=== PATIENT | female | born 1990 | race Caucasian/White ===

== ENCOUNTER 2020-02-21 10:23 | Inpatient (IN) ==
[2020-02-21] MEDS ORDERED: BUTORPHANOL 2 MG/ML VIAL IV PRN (10:52)
[2020-02-21] MEDS ORDERED: MEPERIDINE 50 MG/1 ML VIAL IV PRN (10:52)
[2020-02-21] MEDS ORDERED: OXYTOCIN/LR 20 UNIT/1,000 ML BAG IV SCH (11:00)
[2020-02-21 11:19] LABS: Basophils % 0.3 % (0.0-0.8); Eosinophils # 0.1 10*3/uL (0.0-0.87); Eosinophils % 1.1 % (0.00-10.9); Hematocrit 29.2 VOL% (35.7-47.0); Hemoglobin 9.2 GM/DL (12.0-16.0); Immature Granulocytes Absolute 0.15 #; Lymphocytes % 12.8 % (21.3-54.2); Mean Corpuscular HGB Conc 31.5 GM/DL (32-36); Mean Corpuscular Volume 74.9 FL (87-102); Mean Platelet Volume 9.8 FL (9.6-12.0); Neutrophils % 76.8 % (38.7-73.9); Platelet Count 203 T/CUMM (130-400); Red Cell Distribution Width 15.2 % (9.3-17.3); White Blood Count 7.6 T/CUMM (4-12)
[2020-02-21] MEDS ORDERED: PROMETHAZINE 25 MG/1 ML VIAL IM PRN (11:23)
[2020-02-21] MEDS ORDERED: FAMOTIDINE 20 MG/2 ML VIAL IV ONE (11:23)
[2020-02-21] MEDS ORDERED: NALOXONE 0.4 MG/ML VIAL IV PRN (11:23)
[2020-02-21] MEDS ORDERED: diphenhydrAMINE 50 MG/1 ML VIAL IV PRN ×2 (11:23)
[2020-02-21] MEDS ORDERED: CITRIC ACID/SODIUM CITRATE 30 ML UDCUP PO ONE (11:23)
[2020-02-21] MEDS ORDERED: hydrOXYzine HCL 25 MG/1 ML VIAL IM PRN (11:23)
[2020-02-21] MEDS ORDERED: ePHEDrine 50 MG/ML VIAL IV PRN ×2 (11:23)
[2020-02-21 11:33] LABS: INR 0.9; PT Patient Result 10.1 SECS (9.8-11.9); Partial Thromboplastin Time 27.3 SECS (23.9-33.8)
[2020-02-21 11:42] LABS: Alanine Aminotransferase 17 U/L (13-56); Albumin 2.5 G/DL (3.4-5.0); Alkaline Phosphatase 162 U/L (45-117); Aspartate Amino Transferase 20 U/L (0-37); Bilirubin,Direct < 0.100 MG/DL (0.0-0.20); Bilirubin,Total < 0.39 MG/DL (0.2-1.0); Blood Urea Nitrogen 6 MG/DL (7-18); Calcium 8.8 MG/DL (8.5-10.1); Estimated Glom Filtration Rate 139 ML/MIN; Glucose 85 MG/DL (74-106); Osmolality,Calculated 273.5 MOS/KG (273-304); Total Protein 6.7 G/DL (6.4-8.3); Uric Acid 4.6 MG/DL (2.6-6.0)
[2020-02-21] MEDS: LACTATED RINGERS 1,000 ML IV SCH ×3 (12:40→18:34)
[2020-02-21] MEDS: fentaNYL 2 MCG/ROPIV 0.2% EPID 100 ML EPIDURAL SCH ×2 (13:05→20:01)
[2020-02-21] MEDS: ONDANSETRON 4 MG/2 ML VIAL IV PRN ×2 (13:39→21:59)
[2020-02-21 14:25] LABS: Bacteria,Urine Occasional /HPF (Few); Bilirubin,Urine Negative (Negative); Blood, Urine Negative (Negative); Glucose,Urine (UA) Negative (Negative); Ketones,Urine 20 mg/dL (Negative); Mucus,Urine Occasional /LPF (Occasional); Nitrite,Urine Negative (Negative); Protein,Urine 30 MG/DL; RBC,Urine 1 /HPF (0-4); Squamous Epithelial Cell,Urine Occasional /HPF (0-10); Urine Appearance CLEAR (Clear); Urine Color Yellow (Yellow); Urine Specific Gravity 1.014 (1.001-1.035); Urine Urobilinogen < 2.0 EU/DL (0.2-1.0); WBC,Urine 1 /HPF (0-6)
[2020-02-21] MEDS ORDERED: AMPICILLIN INJ 2,000 MG in SODIUM CHLORIDE 0.9% 100 ML IV ONE (19:50)
[2020-02-21] MEDS ORDERED: ACETAMINOPHEN 500 MG TABLET PO ONE (21:52)
[2020-02-21] MEDS ORDERED: ceFAZolin 2,000 MG in PREMIX 1 EACH IV ONE (22:25)
[2020-02-21] MEDS ORDERED: OXYTOCIN/LR 30 UNIT/1,000 ML BAG IV ONE (22:28)
[2020-02-22] MEDS ORDERED: miSOPROStoL 200 MCG TABLET ONE (00:55)
[2020-02-22] MEDS ORDERED: CARBOPROST TROMETHAMINE 250 MCG/ML AMP IM ONE (00:56)
[2020-02-22] MEDS ORDERED: TRANEXAMIC ACID 1,000 MG/10 ML VIAL ONE (00:56)
[2020-02-22] MEDS ORDERED: METHYLERGONOVINE 0.2 MG/1 ML AMP ONE (00:56)
[2020-02-22] MEDS ORDERED: OXYTOCIN 10 UNIT/ML VIAL ONE (00:57)
[2020-02-22] MEDS ORDERED: ONDANSETRON 4 MG/2 ML VIAL ONE (01:25)
[2020-02-22] MEDS ORDERED: LIDOCAINE MPF 2% /EPI 20 ML VIAL ONE (01:25)
[2020-02-22] MEDS ORDERED: DEXAMETHASONE 4 MG/1 ML VIAL ONE (01:31)
[2020-02-22] MEDS ORDERED: MORPHINE 10 MG/10 ML VIAL ONE (01:50)
[2020-02-22] MEDS ORDERED: fentaNYL 100 MCG/2 ML VIAL ONE ×2 (01:58→02:21)
[2020-02-22] MEDS ORDERED: TISSUE ADHESIVE 1 EACH APPLICATOR TOP ONE (02:04)
[2020-02-22 02:07] LABS: Cord Venous Blood HCO3 21.3 MMOL/L; Cord Venous Blood PCO2 37.5 MMHG; Cord Venous Blood PO2 34.2 MMHG
[2020-02-22] MEDS ORDERED: PHENYLEPHRINE 1 MG/10 ML SYRINGE IV ONE (02:08)
[2020-02-22] MEDS ORDERED: MAGNESIUM HYDROXIDE SUSP 30 ML UDCUP PO PRN (02:17)
[2020-02-22] MEDS ORDERED: ONDANSETRON 4 MG/2 ML VIAL IV PRN (02:17)
[2020-02-22] MEDS ORDERED: SIMETHICONE CHEW 80 MG TABLET PO PRN (02:17)
[2020-02-22] MEDS ORDERED: ACETAMINOPHEN 325 MG TABLET PO PRN (02:17)
[2020-02-22] MEDS ORDERED: RHO(D) IMMUNE GLOBULIN 300 MCG SYRINGE IM ONE (02:17)
[2020-02-22] MEDS ORDERED: OXYTOCIN/LR 20 UNIT/1,000 ML BAG IV ONE (02:17)
[2020-02-22 02:22] LABS: Cord Arterial Blood HCO3 20.3 MMOL/L
[2020-02-22] MEDS ORDERED: HYDROmorphone 2 MG/1 ML VIAL ONE (02:23)
[2020-02-22] MEDS ORDERED: METHYLERGONOVINE 0.2 MG/1 ML AMP IM ONE (02:25)
[2020-02-22] MEDS ORDERED: LACTATED RINGERS 1,000 ML IV SCH (02:30)
[2020-02-22] MEDS ORDERED: KETOROLAC 30 MG/1 ML VIAL ONE (02:32)
[2020-02-22] MEDS ORDERED: SODIUM BICARBONATE 10 MEQ/10 ML SYRINGE IV ONE (02:43)
[2020-02-22 04:52] LABS: Basophils % 0.2 % (0.0-0.8); Hemoglobin 7.7 GM/DL (12.0-16.0); Immature Granulocytes % 0.8 %; Immature Granulocytes Absolute 0.16 #; Lymphocytes # 0.4 10*3/uL (1.4-4.0); Mean Corpuscular HGB Conc 32.1 GM/DL (32-36); Mean Corpuscular Volume 74.5 FL (87-102); Mean Platelet Volume 9.9 FL (9.6-12.0); Monocytes % 5.3 % (1.7-12.7); Neutrophils % 91.7 % (38.7-73.9); Platelet Count 204 T/CUMM (130-400); Red Blood Count 3.22 MC/CUMM (3.8-5.5); Red Cell Distribution Width 15.5 % (9.3-17.3); White Blood Count 19.3 T/CUMM (4-12)
[2020-02-22 05:20] LABS: Band Neutrophils 3 % (0-10); Hypochromasia 2+; Lymphocytes 2 % (20-55); Microcytosis 1+; Platelet Estimate Adequate; Segmented Neutrophils 93 % (50-85); Total Cells Counted 100
[2020-02-22] MEDS ORDERED: SODIUM CHLORIDE 0.9% 1,000 ML IV PRN ×2 (06:29→10:36)
[2020-02-22] MEDS: METOCLOPRAMIDE 10 MG/2 ML VIAL IV SCH ×2 (07:50→17:13)
[2020-02-22] MEDS: ceFAZolin 1,000 MG in SYRINGE 1 EACH IV SCH ×2 (09:10→21:23)
[2020-02-22] MEDS: HYDROmorphone 2 MG/1 ML VIAL IV PRN ×2 (09:23→13:57)
[2020-02-22] MEDS: DOCUSATE SODIUM 100 MG CAPSULE PO SCH ×2 (12:08→21:22)
[2020-02-22] MEDS: MULTIVITAMIN (PRENATAL) TABLET PO SCH (12:09)
[2020-02-22] MEDS: IBUPROFEN 800 MG TABLET PO PRN (18:38)
[2020-02-22] MEDS: FERROUS SULFATE 325 MG TABLET PO SCH (21:22)
[2020-02-22] MEDS: METOCLOPRAMIDE 10 MG TABLET PO SCH (21:22)
[2020-02-23] MEDS: METOCLOPRAMIDE 10 MG TABLET PO SCH ×2 (04:46→15:06)
[2020-02-23] MEDS: ceFAZolin 1,000 MG in SYRINGE 1 EACH IV SCH ×2 (04:47→14:00)
[2020-02-23 05:41] LABS: Basophils % 0.2 % (0.0-0.8); Eosinophils % 0.1 % (0.00-10.9); Hematocrit 25.2 VOL% (35.7-47.0); Hemoglobin 8.5 GM/DL (12.0-16.0); Immature Granulocytes % 0.9 %; Immature Granulocytes Absolute 0.17 #; Lymphocytes # 1.4 10*3/uL (1.4-4.0); Mean Corpuscular HGB Conc 33.7 GM/DL (32-36); Mean Corpuscular Volume 76.1 FL (87-102); Mean Platelet Volume 9.9 FL (9.6-12.0); Neutrophils % 84.8 % (38.7-73.9); Platelet Count 187 T/CUMM (130-400); Red Blood Count 3.31 MC/CUMM (3.8-5.5); Red Cell Distribution Width 15.9 % (9.3-17.3)
[2020-02-23] MEDS: IBUPROFEN 800 MG TABLET PO PRN (06:06)
[2020-02-23 07:42] VITALS: BP 131/73
[2020-02-23] MEDS: DOCUSATE SODIUM 100 MG CAPSULE PO SCH (09:14)
[2020-02-23] MEDS: FERROUS SULFATE 325 MG TABLET PO SCH (09:14)
[2020-02-23] MEDS: MULTIVITAMIN (PRENATAL) TABLET PO SCH (09:14)
[2020-02-23] MEDS ORDERED: RHO(D) IMMUNE GLOBULIN 300 MCG SYRINGE IM ONE (13:00)
[2020-02-23] MEDS ORDERED: MEASLES/MUMPS/RUBELLA VACCINE 0.5 ML VIAL SUBCUT ONE (13:52)
== END 2020-02-23 14:55 | disposition home or self-care (01) | DRG 786 ==
LOC: N.LDOUT 10:23 → N.LD 10:28 → N.OB 02-22 08:07
PROVIDERS: ADMIT Obstetrics & Gynecology; ATTEND Obstetrics & Gynecology
PROC: LDCSECT (ICD-10-PCS; 2020-02-22 01:20)

== ENCOUNTER 2021-08-17 14:40 | Observation (INO) ==
[2021-08-17 16:36] LABS: Basophils % 0.9 % (0.0-0.8); Eosinophils # 0.2 10*3/uL (0.0-0.87); Eosinophils % 4.6 % (0.00-10.9); Hematocrit 37.5 VOL% (35.7-47.0); Hemoglobin 12.7 GM/DL (12.0-16.0); Immature Granulocytes % 0.2 %; Immature Granulocytes Absolute 0.01 #; Lymphocytes # 1.3 10*3/uL (1.4-4.0); Lymphocytes % 28.8 % (21.3-54.2); Mean Corpuscular HGB Conc 33.9 GM/DL (32-36); Mean Corpuscular Volume 80.6 FL (87-102); Mean Platelet Volume 9.3 FL (9.6-12.0); Monocytes # 0.4 10*3/uL (0.11-0.8); Monocytes % 9.2 % (1.7-12.7); Neutrophils % 56.3 % (38.7-73.9); Platelet Count 234 T/CUMM (130-400); Red Blood Count 4.65 MC/CUMM (3.8-5.5); White Blood Count 4.4 T/CUMM (4-12)
[2021-08-17 16:46] LABS: Bilirubin,Urine Negative (Negative); Blood, Urine Small mg/dL (Negative); Glucose,Urine (UA) Negative (Negative); Ketones,Urine Negative (Negative); Nitrite,Urine Negative (Negative); Protein,Urine Negative (Negative); Urine Appearance Clear (Clear); Urine Color Yellow (Yellow); Urine Urobilinogen 0.2 eU/dL (<2.0)
[2021-08-17 16:48] LABS: Bacteria,Urine Occasional /HPF (Few); Squamous Epithelial Cell,Urine Occasional /HPF (0-10)
[2021-08-17 16:55] LABS: Alanine Aminotransferase 23 U/L (13-56); Albumin 4.2 G/DL (3.4-5.0); Alkaline Phosphatase 71 U/L (45-117); Aspartate Amino Transferase 12 U/L (0-37); Bilirubin,Total < 0.39 MG/DL (0.20-1.00); Blood Urea Nitrogen 11 MG/DL (7-18); Calcium 9.2 MG/DL (8.5-10.1); Carbon Dioxide 28 MMOL/L (21-32); Chloride 110 MMOL/L (98-107); Glucose 97 MG/DL (74-106); Potassium 3.1 MMOL/L (3.5-5.1); Sodium 143 MMOL/L (136-145); Total Protein 7.2 G/DL (6.4-8.2)
[2021-08-17 17:17] LABS: PT Patient Result 10.8 SECS (10.5-12.0)
[2021-08-17] MEDS ORDERED: DOCUSATE SODIUM 100 MG CAPSULE PO PRN (17:52)
[2021-08-17] MEDS ORDERED: GLUCAGON 1 MG VIAL IM PRN (17:52)
[2021-08-17] MEDS ORDERED: ONDANSETRON 4 MG/2 ML VIAL IV PRN (17:52)
[2021-08-17] MEDS ORDERED: DEXTROSE 10% 250 ML BAG IV PRN (17:57)
[2021-08-17] MEDS ORDERED: POTASSIUM CHLORIDE 20 MEQ TABLET PO ONE (18:04)
[2021-08-17] MEDS: POTASSIUM CHLORIDE INJ 40 MEQ in LACTATED RINGERS 1,000 ML IV SCH (18:34)
[2021-08-17 18:36] LABS: Thyroid Stimulating Hormone 0.929 uIU/ml (0.358-3.74)
[2021-08-17] MEDS: PANTOPRAZOLE 40 MG TABLET PO SCH (20:37)
[2021-08-18 05:20] LABS: Basophils # 0.1 10*3/uL (0.0-0.2); Basophils % 1.2 % (0.0-0.8); Eosinophils # 0.3 10*3/uL (0.0-0.87); Eosinophils % 7.1 % (0.00-10.9); Hematocrit 34.1 VOL% (35.7-47.0); Hemoglobin 11.3 GM/DL (12.0-16.0); Immature Granulocytes % 0.2 %; Immature Granulocytes Absolute 0.01 #; Lymphocytes % 48.5 % (21.3-54.2); Mean Corpuscular HGB Conc 33.1 GM/DL (32-36); Mean Corpuscular Volume 82.6 FL (87-102); Mean Platelet Volume 9.5 FL (9.6-12.0); Monocytes # 0.4 10*3/uL (0.11-0.8); Monocytes % 9.3 % (1.7-12.7); Neutrophils % 33.7 % (38.7-73.9); Platelet Count 214 T/CUMM (130-400); Red Blood Count 4.13 MC/CUMM (3.8-5.5); Red Cell Distribution Width 18.4 % (9.3-17.3); White Blood Count 4.1 T/CUMM (4-12)
[2021-08-18 05:44] LABS: Calcium 8.6 MG/DL (8.5-10.1); Eosinophils 13 % (0-10); Lymphocytes 51 % (20-55); Platelet Estimate Normal; Total Cells Counted 100
[2021-08-18] MEDS ORDERED: POTASSIUM CHLORIDE 20 MEQ TABLET PO SCH (09:00)
[2021-08-18] MEDS: PANTOPRAZOLE 40 MG TABLET PO SCH ×2 (09:18→20:30)
[2021-08-18 10:08] LABS: Calcium 8.9 MG/DL (8.5-10.1); Osmolality,Calculated 283.8 MOS/KG (273-304); Potassium 4.3 MMOL/L (3.5-5.1)
[2021-08-18] MEDS: LACTATED RINGERS 1,000 ML IV SCH ×2 (11:00→16:59)
[2021-08-18] MEDS ORDERED: ACETAMINOPHEN 325 MG TABLET PO PRN (22:58)
[2021-08-19] MEDS: POTASSIUM CHLORIDE INJ 40 MEQ in LACTATED RINGERS 1,000 ML IV SCH (03:07)
[2021-08-19 05:18] LABS: Basophils % 0.8 % (0.0-0.8); Eosinophils # 0.3 10*3/uL (0.0-0.87); Hematocrit 34.9 VOL% (35.7-47.0); Hemoglobin 11.6 GM/DL (12.0-16.0); Immature Granulocytes % 0.2 %; Immature Granulocytes Absolute 0.01 #; Lymphocytes # 2.2 10*3/uL (1.4-4.0); Lymphocytes % 46.1 % (21.3-54.2); Mean Corpuscular HGB Conc 33.2 GM/DL (32-36); Mean Corpuscular Volume 83.1 FL (87-102); Mean Platelet Volume 9.8 FL (9.6-12.0); Monocytes # 0.4 10*3/uL (0.11-0.8); Monocytes % 8.3 % (1.7-12.7); Neutrophils % 37.6 % (38.7-73.9); Platelet Count 208 T/CUMM (130-400); White Blood Count 4.7 T/CUMM (4-12)
[2021-08-19 05:32] LABS: Calcium 8.8 MG/DL (8.5-10.1); Osmolality,Calculated 280.1 MOS/KG (273-304); Potassium 3.9 MMOL/L (3.5-5.1)
[2021-08-19 06:29] LABS: Eosinophils 10 % (0-10); Lymphocytes 30 % (20-55); Platelet Estimate Adequate; Total Cells Counted 100
[2021-08-19] MEDS: PANTOPRAZOLE 40 MG TABLET PO SCH ×2 (08:07→21:14)
[2021-08-19] MEDS ORDERED: BISACODYL 5 MG TABLET PO ONE (15:30)
[2021-08-19] MEDS ORDERED: POLYETHYLENE GLYCOL POWDER 255 GM BOTTLE PO ONE (16:00)
[2021-08-20] MEDS ORDERED: POLYETHYLENE GLYCOL POWDER 255 GM BOTTLE PO ONE (05:00)
[2021-08-20 05:46] LABS: Basophils % 0.9 % (0.0-0.8); Eosinophils # 0.3 10*3/uL (0.0-0.87); Eosinophils % 6.3 % (0.00-10.9); Hematocrit 36.3 VOL% (35.7-47.0); Hemoglobin 12.1 GM/DL (12.0-16.0); Lymphocytes # 1.8 10*3/uL (1.4-4.0); Lymphocytes % 41.3 % (21.3-54.2); Mean Corpuscular HGB Conc 33.3 GM/DL (32-36); Mean Corpuscular Volume 81.9 FL (87-102); Mean Platelet Volume 9.8 FL (9.6-12.0); Monocytes # 0.4 10*3/uL (0.11-0.8); Monocytes % 9.2 % (1.7-12.7); Neutrophils % 42.3 % (38.7-73.9); Platelet Count 202 T/CUMM (130-400); Red Blood Count 4.43 MC/CUMM (3.8-5.5); Red Cell Distribution Width 17.9 % (9.3-17.3); White Blood Count 4.5 T/CUMM (4-12)
[2021-08-20] MEDS: PANTOPRAZOLE 40 MG TABLET PO SCH (08:24)
[2021-08-20] MEDS ORDERED: LACTATED RINGERS 1,000 ML IV SCH (13:30)
[2021-08-20] MEDS ORDERED: LIDOCAINE 2% 5 ML VIAL ONE (13:37)
[2021-08-20] MEDS ORDERED: propofoL 200 MG/20 ML VIAL IV ONE ×2 (13:37→13:51)
[2021-08-20 16:10] VITALS: BP 102/55
== END 2021-08-20 17:01 | disposition home or self-care (01) ==
LOC: N.ED 14:40 → N.3E 14:40 → SUATTDRO 17:37 → N.3E 18:35
PROVIDERS: ADMIT Internal Medicine; ATTEND Internal Medicine